=== PATIENT | male | born 1955 | race Two or more races ===

== ENCOUNTER 2017-01-15 17:54 | Inpatient (IN) | payer MEDICAID ==
[~2017-01-15] VITALS: Ht 157.5 cm; Wt 56.7 kg
[~2017-01-15 17:54] MED LIST: LIS10T PO; PANT40TA2 PO
[2017-01-15 18:55] LABS: Basophils # (auto) 0 uL; CONDITION Y; DEFINITIVE SEE PRINTOUT; Eosinophils # (auto) 0 uL; Mean Corpuscular Hemoglobin 16.6 pg (28.0-32.0); Neutrophils # (auto) 5.6 uL
[2017-01-15 19:00] LABS: Basophils % (auto) 0.3 % (0.0-2.0); Eosinophils % (auto) 0.2 % (0.0-7.0); Hematocrit 21.5 % (41.0-53.0); Lymphocytes # (auto) 0.9 uL; Lymphocytes % (auto) 12.9 % (10.0-50.0); Mean Corpuscular Hgb Conc. 29.6 g/dL (32.0-36.0); Mean Platelet Volume 8.6 fL (7.4-10.4); Monocytes # (auto) 0.7 uL; Neutrophils % (auto) 77.6 % (37.0-80.0); Platelet Count (auto) 435 10^3/uL (140-450); White Blood Cell 7.3 10^3/uL (4.4-10.8)
[2017-01-15 19:06] LABS: Red Cell Distribution Width 20.1 % (11.6-16.0)
[2017-01-15 19:09] LABS: Hemoglobin 6.4 g/dL (13.5-17.5)
[2017-01-15 19:11] LABS: Albumin 3.7 g/dL (3.4-5.0); Anion Gap 8 (5-15); Aspartate Aminotransferase 17 U/L (15-37); Blood Urea Nitrogen 23 mg/dL (7-18); Calcium 8.1 mg/dL (8.5-10.1); Carbon Dioxide 25 mmol/L (21-32); Chloride 107 mmol/L (98-107); GFR African American 108 mL/min; GFR Non-African American 89 mL/min; Glucose 77 mg/dL (74-106); Potassium 3.4 mmol/L (3.5-5.1); Sodium 140 mmol/L (136-145)
[2017-01-15 19:13] LABS: Prothrombin Time 10.9 sec (9.37-12.3)
[2017-01-15 19:16] LABS: Alkaline Phosphatase 64 U/L (45-117); Bilirubin, Total 0.9 mg/dL (0.2-1.0); Total Protein 7.3 g/dL (6.4-8.2)
[2017-01-15 19:33] LABS: Anisocytosis Moderate; Hypochromia Moderate; Platelet Estimate Adequate
[2017-01-15 19:34] LABS: Microcytosis Moderate; Ovalocytes MODERATE; Tear Drop Cells FEW
[2017-01-15 23:37] VITALS: BP 162/81
[2017-01-15 23:52] VITALS: BP 155/80
[2017-01-16] VITALS (15 sets, daily range): BP systolic 141–167; BP diastolic 73–86
[2017-01-16] MEDS ORDERED: MORPHINE SULF INJ 2 MG/ML SYRINGE 1ML IV PRN (06:45)
[2017-01-16] MEDS ORDERED: HYDROcodone-ACET 5/325MG TAB PO PRN (06:45)
[2017-01-16] MEDS ORDERED: ONDANSETRON HCL 4 MG/2 ML VIAL IV PRN (06:45)
[2017-01-16] MEDS ORDERED: NITROGLYCERIN 0.4 MG SL TAB SL PRN (06:45)
[2017-01-16] MEDS ORDERED: ACETAMINOPHEN 325 MG TAB PO PRN (06:45)
[2017-01-16] MEDS: SODIUM CHLORIDE 0.9% 1,000 ML IV SCH ×2 (07:15→21:49)
[2017-01-16] MEDS: PANTOPRAZOLE SODIUM 40 MG/10 ML VIAL IV SCH ×3 (07:20→21:49)
[2017-01-16 07:39] LABS: Hematocrit 32.4 % (41.0-53.0); Hemoglobin 10.1 g/dL (13.5-17.5)
[2017-01-16] MEDS ORDERED: GOLYTELY 4L KIT PO ONE (11:15)
[2017-01-16] MEDS: LISINOPRIL 10 MG TAB PO SCH (12:06)
[2017-01-16] MEDS ORDERED: BENA20TA14 PO (12:12)
[2017-01-17 00:27] VITALS: BP 140/67
[2017-01-17 05:00] VITALS: BP 138/65
[2017-01-17 06:20] LABS: Basophils # (auto) 0 uL; Basophils % (auto) 0.5 % (0.0-2.0); CONDITION Y; DEFINITIVE SEE PRINTOUT; Eosinophils # (auto) 0.1 uL; Eosinophils % (auto) 1.8 % (0.0-7.0); Hematocrit 31.5 % (41.0-53.0); Hemoglobin 9.8 g/dL (13.5-17.5); Lymphocytes # (auto) 0.9 uL; Mean Corpuscular Hemoglobin 20.2 pg (28.0-32.0); Mean Corpuscular Hgb Conc. 31.1 g/dL (32.0-36.0); Mean Corpuscular Volume 65.1 fL (80.0-100.0); Mean Platelet Volume 9.5 fL (7.4-10.4); Monocytes # (auto) 0.6 uL; Monocytes % (auto) 9.5 % (0.0-12.0); Neutrophils # (auto) 4.5 uL; Neutrophils % (auto) 74.2 % (37.0-80.0); Platelet Count (auto) 442 10^3/uL (140-450); SUSPECT SEE PRINTOUT; White Blood Cell 6.1 10^3/uL (4.4-10.8)
[2017-01-17 06:31] LABS: Red Cell Distribution Width 30.7 % (11.6-16.0)
[2017-01-17 06:42] LABS: Prothrombin Time 10.9 sec (9.37-12.3)
[2017-01-17 06:48] LABS: Anisocytosis Marked; Hypersegmented Neutrophils Present; Hypochromia Moderate; Microcytosis Marked; Ovalocytes MANY; Platelet Estimate Adequate
[2017-01-17 06:49] LABS: Polychromasia Slight
[2017-01-17 07:00] LABS: Albumin 3.2 g/dL (3.4-5.0); BUN/Creatinine Ratio 14.3; Calcium 7.9 mg/dL (8.5-10.1); Magnesium 2.3 mg/dL (1.6-2.6); Potassium 3.7 mmol/L (3.5-5.1)
[2017-01-17 07:02] LABS: Bilirubin, Total 1.9 mg/dL (0.2-1.0); Total Protein 6.4 g/dL (6.4-8.2)
[2017-01-17] MEDS ORDERED: SODIUM CHLORIDE LOCK 10 ML ONE (07:59)
[2017-01-17] MEDS ORDERED: LIDOCAINE VISCOUS 2% 15ML UD ONE (08:00)
[2017-01-17] MEDS ORDERED: diphenhdrAMINE HCL 50 MG/1 ML VL ONE (08:00)
[2017-01-17 09:00] VITALS: BP 137/63
[2017-01-17] MEDS: PANTOPRAZOLE SODIUM 40 MG/10 ML VIAL IV SCH ×2 (09:45→21:41)
[2017-01-17] MEDS: LISINOPRIL 10 MG TAB PO SCH (09:46)
[2017-01-17] MEDS: SODIUM CHLORIDE 0.9% 1,000 ML IV SCH ×2 (11:17→21:41)
[2017-01-17] MEDS: MIDAZOLAM HCL 5 MG/ML-1ML VIAL ONE ×3 (11:37→11:51)
[2017-01-17] MEDS: fentaNYL CITRATE 100 MCG/2 ML VL ONE ×3 (11:37→11:51)
[2017-01-17 17:23] VITALS: BP 173/71
[2017-01-17 17:30] VITALS: BP 147/75
[2017-01-17 21:27] VITALS: BP 110/74
[2017-01-18 04:52] VITALS: BP 105/66
[2017-01-18 06:41] LABS: Basophils # (auto) 0 uL; Basophils % (auto) 0.2 % (0.0-2.0); CONDITION Y; DEFINITIVE SEE PRINTOUT; Eosinophils # (auto) 0 uL; Eosinophils % (auto) 0.3 % (0.0-7.0); Hematocrit 31.2 % (41.0-53.0); Hemoglobin 9.9 g/dL (13.5-17.5); Lymphocytes # (auto) 0.6 uL; Mean Corpuscular Hemoglobin 20.4 pg (28.0-32.0); Mean Corpuscular Hgb Conc. 31.7 g/dL (32.0-36.0); Mean Corpuscular Volume 64.2 fL (80.0-100.0); Mean Platelet Volume 8.4 fL (7.4-10.4); Monocytes # (auto) 0.5 uL; Monocytes % (auto) 7.5 % (0.0-12.0); Neutrophils # (auto) 5.5 uL; Platelet Count (auto) 369 10^3/uL (140-450); SUSPECT SEE PRINTOUT; White Blood Cell 6.6 10^3/uL (4.4-10.8)
[2017-01-18 06:44] LABS: INR 1.04 (0.9-1.15); Prothrombin Time 11.3 sec (9.37-12.3)
[2017-01-18 06:53] LABS: Albumin 3.2 g/dL (3.4-5.0); BUN/Creatinine Ratio 11.8; Magnesium 2.3 mg/dL (1.6-2.6)
[2017-01-18 07:09] LABS: Bilirubin, Total 1.9 mg/dL (0.2-1.0); Total Protein 6.2 g/dL (6.4-8.2)
[2017-01-18 08:00] VITALS: BP 146/75
[2017-01-18] MEDS: PANTOPRAZOLE SODIUM 40 MG/10 ML VIAL IV SCH ×2 (09:06→21:31)
[2017-01-18] MEDS: LISINOPRIL 10 MG TAB PO SCH (09:06)
[2017-01-18 09:29] LABS: Microcytosis Marked; Platelet Estimate Adequate
[2017-01-18 09:30] LABS: Anisocytosis Marked; Hypochromia Marked; Ovalocytes MODERATE
[2017-01-18 09:31] LABS: Burr Cells FEW
[2017-01-18 09:32] LABS: Schistocytes FEW; Tear Drop Cells FEW
[2017-01-18 13:00] VITALS: BP 146/74
[2017-01-18 16:43] VITALS: BP 141/74
[2017-01-18 21:10] VITALS: BP 146/77
[2017-01-18] MEDS: Boost Breeze 8 Ounces PO SCH (21:31)
[2017-01-19] MEDS: SODIUM CHLORIDE 0.9% 1,000 ML IV SCH ×2 (01:55→23:02)
[2017-01-19 05:00] VITALS: BP 145/80
[2017-01-19] MEDS: Boost Breeze 8 Ounces PO SCH ×3 (06:00→22:21)
[2017-01-19 06:23] LABS: Hematocrit 30.1 % (41.0-53.0); Hemoglobin 9.3 g/dL (13.5-17.5)
[2017-01-19 09:00] VITALS: BP 150/74
[2017-01-19] MEDS: PANTOPRAZOLE SODIUM 40 MG/10 ML VIAL IV SCH ×2 (09:55→22:21)
[2017-01-19] MEDS: LISINOPRIL 10 MG TAB PO SCH (09:55)
[2017-01-19 12:28] VITALS: BP 130/73
[2017-01-19 17:08] VITALS: BP 139/70
[2017-01-19 22:00] VITALS: BP 153/75
[2017-01-20 05:19] VITALS: BP 144/83
[2017-01-20 05:54] LABS: Hematocrit 30.5 % (41.0-53.0); Hemoglobin 9.5 g/dL (13.5-17.5)
[2017-01-20] MEDS: Boost Breeze 8 Ounces PO SCH ×2 (06:00→14:00)
[2017-01-20 08:42] VITALS: BP 148/75
[2017-01-20] MEDS: PANTOPRAZOLE SODIUM 40 MG/10 ML VIAL IV SCH (09:59)
[2017-01-20] MEDS: LISINOPRIL 10 MG TAB PO SCH (09:59)
[2017-01-20 12:25] VITALS: BP 151/83
[2017-01-20] MEDS ORDERED: PANT40TA2 PO (13:06)
[2017-01-20 17:06] VITALS: BP 127/78
== END 2017-01-20 16:05 | disposition home or self-care (01) | DRG 240 ==
LOC: ER 17:55 → OVERFLOW 17:56 → EAST 01-16 09:25 → CENTRAL 01-16 17:32 → TELE-CENTR 01-16 17:52
PROVIDERS: ADMIT Nurse Practitioner; ATTEND Internal Medicine
PROC: 30233N1 Transfusion of Nonautologous Red Blood Cells into Peripheral Vein, Percutaneous Approach (ICD-10-PCS; 2017-01-15)
PROC: 0W3P8ZZ Control Bleeding in Gastrointestinal Tract, Via Natural or Artificial Opening Endoscopic (ICD-10-PCS; 2017-01-17)
PROC: 0DBE8ZX Excision of Large Intestine, Via Natural or Artificial Opening Endoscopic, Diagnostic (ICD-10-PCS; principal; 2017-01-17 11:35)
PROC: 0DB68ZX Excision of Stomach, Via Natural or Artificial Opening Endoscopic, Diagnostic (ICD-10-PCS; 2017-01-17 11:35)
DX: C18.9 Malignant neoplasm of colon, unspecified (principal); I11.9 Hypertensive heart disease without heart failure; K92.2 Gastrointestinal hemorrhage, unspecified; D50.0 Iron deficiency anemia secondary to blood loss (chronic); J98.11 Atelectasis; D64.9 Anemia, unspecified; K44.9 Diaphragmatic hernia without obstruction or gangrene; K29.60 Other gastritis without bleeding; K40.20 Bilateral inguinal hernia, without obstruction or gangrene, not specified as recurrent; Q27.33 Arteriovenous malformation of digestive system vessel; Z85.038 Personal history of other malignant neoplasm of large intestine; Z90.49 Acquired absence of other specified parts of digestive tract; Z80.9 Family history of malignant neoplasm, unspecified
CPT/HCPCS: 36415; 36430; 43239; 43255; 45380; 74176; 80053; 82270; 83735; 84484; 85014; 85018; 85025; 85610; 86850; 86900; 86901; 86920; 88342; 93005; 94761; C9113; J2250

== ENCOUNTER 2018-02-05 13:24 | Inpatient (IN) | payer MEDICAID ==
[~2018-02-05] VITALS: Ht 152.4 cm; Wt 59.3 kg
[2018-02-05] VITALS (10 sets, daily range): BP systolic 127–148; BP diastolic 64–75
[~2018-02-05 13:24] MED LIST changes: +BENA20TA14 PO
[2018-02-05] MEDS ORDERED: SODIUM CHLORIDE 0.9% 500 ML IV ONE (14:00)
[2018-02-05 14:21] LABS: Basophils # (auto) 0 uL; Eosinophils # (auto) 0.1 uL; Lymphocytes # (auto) 0.2 uL
[2018-02-05 14:23] LABS: Basophils % (auto) 0.1 % (0.0-2.0); Eosinophils % (auto) 1.2 % (0.0-7.0); Hematocrit 19.1 % (41.0-53.0); Mean Corpuscular Hemoglobin 22.1 pg (28.0-32.0); Mean Corpuscular Hgb Conc. 31.3 g/dL (32.0-36.0); Mean Corpuscular Volume 70.4 fL (80.0-100.0); Monocytes # (auto) 0.7 uL; Monocytes % (auto) 8.8 % (0.0-12.0); Neutrophils # (auto) 7.1 uL; Neutrophils % (auto) 86.9 % (37.0-80.0); Nucleated Red Blood Cells % 0.1 %; Platelet Count (auto) 519 10^3/uL (140-450); Red Blood Cells 2.71 10^6/uL (4.5-5.90); White Blood Cell 8.2 10^3/uL (4.4-10.8)
[2018-02-05 14:35] LABS: Red Cell Distribution Width 23.4 % (11.8-14.3)
[2018-02-05 14:41] LABS: INR 1.09 (0.9-1.15); Partial Thromboplastin Time 32.2 sec (23.78-33.04); Prothrombin Time 11.6 sec (9.27-12.13)
[2018-02-05 14:45] LABS: Alanine Aminotransferase 18 U/L (16-61); Albumin 2.1 g/dL (3.4-5.0); Alkaline Phosphatase 54 U/L (45-117); Anion Gap 6 (5-15); Aspartate Aminotransferase 16 U/L (15-37); BUN/Creatinine Ratio 18.3; Bilirubin, Total 0.3 mg/dL (0.2-1.0); Blood Urea Nitrogen 20 mg/dL (7-18); Calcium 7.4 mg/dL (8.5-10.1); Carbon Dioxide 26 mmol/L (21-32); Chloride 102 mmol/L (98-107); GFR African American 88 mL/min; GFR Non-African American 73 mL/min; Glucose 102 mg/dL (74-106); Potassium 3.1 mmol/L (3.5-5.1); Sodium 134 mmol/L (136-145); Total Protein 5.9 g/dL (6.4-8.2)
[2018-02-05 15:50] LABS: Urine Bacteria NONE SEEN /hpf (None Seen); Urine Blood Negative /uL (Negative); Urine Specific Gravity 1.002 (1.001-1.035); Urine WBC 10 /hpf (0 - 3)
[2018-02-05] MEDS ORDERED: TEMAZEPAM 15 MG CAP PO PRN (18:00)
[2018-02-05] MEDS ORDERED: MORPHINE SULFATE 4 MG/ML SYR/VIAL IV PRN ×2 (18:00)
[2018-02-05] MEDS ORDERED: PROMETHAZINE HCL 25 MG/ML 1ML IV PRN (18:00)
[2018-02-05] MEDS ORDERED: ACETAMINOPHEN 500 MG TAB PO PRN (18:00)
[2018-02-05] MEDS ORDERED: cefTRIAXone 1GM/10ml IVPUSH 10 ML IV ONE (18:00)
[2018-02-05] MEDS ORDERED: NITROGLYCERIN 0.4 MG SL TAB SL PRN (18:00)
[2018-02-05] MEDS ORDERED: HYDROcodone-ACET 5/325MG TAB PO PRN (18:00)
[2018-02-05] MEDS ORDERED: LORazepam 0.5 MG TAB PO PRN (18:00)
[2018-02-05] MEDS: SODIUM CHLORIDE 0.9% 1,000 ML IV SCH (19:35)
[2018-02-05 22:22] LABS: Hematocrit 20.3 % (41.0-53.0)
[2018-02-05] MEDS: metroNIDAZOLE 500MG/100ML 100 ML IV SCH (22:26)
[2018-02-05] MEDS: PANTOPRAZOLE 40 MG TAB PO SCH (22:27)
[2018-02-05] MEDS: BENAZEPRIL HCL 10 MG TAB PO SCH (22:27)
[2018-02-05 22:29] LABS: Hemoglobin 6.5 g/dL (13.5-17.5)
[2018-02-06] VITALS (9 sets, daily range): BP systolic 117–143; BP diastolic 62–73
[2018-02-06] MEDS: SODIUM CHLORIDE 0.9% 1,000 ML IV SCH ×2 (06:23→10:21)
[2018-02-06] MEDS: metroNIDAZOLE 500MG/100ML 100 ML IV SCH (06:24)
[2018-02-06 07:05] LABS: Hematocrit 21.3 % (41.0-53.0)
[2018-02-06 10:12] LABS: Hemoglobin 7.1 g/dL (13.5-17.5)
[2018-02-06 10:14] LABS: Hematocrit 23.1 % (41.0-53.0)
[2018-02-06] MEDS: cefTRIAXone 1GM/10ml IVPUSH 10 ML IV SCH (10:20)
[2018-02-06] MEDS: PANTOPRAZOLE 40 MG TAB PO SCH ×2 (10:20→21:27)
[2018-02-06] MEDS: metroNIDAZOLE 500 MG TAB PO SCH ×2 (15:00→21:26)
[2018-02-06] MEDS: FLORASTOR (S. BOULARDII) 250 MG CAP PO SCH (16:50)
[2018-02-06] MEDS: BENAZEPRIL HCL 10 MG TAB PO SCH (21:27)
[2018-02-07 05:22] VITALS: BP 125/72
[2018-02-07 06:01] LABS: BUN/Creatinine Ratio 17.7; Calcium 7.2 mg/dL (8.5-10.1); Potassium 3.4 mmol/L (3.5-5.1)
[2018-02-07 06:13] LABS: Basophils # (auto) 0 uL; Basophils % (auto) 0.2 % (0.0-2.0); Eosinophils # (auto) 0.1 uL; Hematocrit 30.7 % (41.0-53.0); Hemoglobin 9.2 g/dL (13.5-17.5); Lymphocytes # (auto) 0.4 uL; Mean Corpuscular Hemoglobin 24.2 pg (28.0-32.0); Mean Corpuscular Volume 80.7 fL (80.0-100.0); Monocytes # (auto) 0.7 uL; Monocytes % (auto) 7.1 % (0.0-12.0); Neutrophils # (auto) 8.2 uL; Neutrophils % (auto) 87.7 % (37.0-80.0); Nucleated Red Blood Cells % 0.1 %; Platelet Count (auto) 503 10^3/uL (140-450); Red Blood Cells 3.81 10^6/uL (4.5-5.90); White Blood Cell 9.3 10^3/uL (4.4-10.8)
[2018-02-07 06:14] LABS: Red Cell Distribution Width 26.9 % (11.8-14.3)
[2018-02-07] MEDS: metroNIDAZOLE 500 MG TAB PO SCH ×2 (06:59→14:14)
[2018-02-07 09:00] VITALS: BP 134/71
[2018-02-07] MEDS: FLORASTOR (S. BOULARDII) 250 MG CAP PO SCH (09:56)
[2018-02-07] MEDS: PANTOPRAZOLE 40 MG TAB PO SCH (09:56)
[2018-02-07] MEDS: cefTRIAXone 1GM/10ml IVPUSH 10 ML IV SCH (09:56)
[2018-02-07 13:00] VITALS: BP 142/78
[2018-02-07] MEDS ORDERED: POTASSIUM CHL 20 Meq TABLET PO ONE (14:15)
[2018-02-07 15:24] VITALS: BP 142/78
== END 2018-02-07 16:40 | disposition home or self-care (01) | DRG 240 ==
LOC: ER 13:24 → TELE 13:25 → TELE-WESTW 20:10 → WEST WING 02-06 16:05
PROVIDERS: ADMIT Internal Medicine; ATTEND Internal Medicine
PROC: 30233N1 Transfusion of Nonautologous Red Blood Cells into Peripheral Vein, Percutaneous Approach (ICD-10-PCS; principal; 2018-02-05)
DX: C18.9 Malignant neoplasm of colon, unspecified (principal); E44.0 Moderate protein-calorie malnutrition; N39.0 Urinary tract infection, site not specified; E87.1 Hypo-osmolality and hyponatremia; K92.2 Gastrointestinal hemorrhage, unspecified; B96.1 Klebsiella pneumoniae [K. pneumoniae] as the cause of diseases classified elsewhere; I10 Essential (primary) hypertension; E87.6 Hypokalemia; D64.9 Anemia, unspecified; R19.7 Diarrhea, unspecified; R60.0 Localized edema; Z87.19 Personal history of other diseases of the digestive system; Z90.49 Acquired absence of other specified parts of digestive tract; Z79.899 Other long term (current) drug therapy; Z68.25 Body mass index [BMI] 25.0-25.9, adult; Z85.038 Personal history of other malignant neoplasm of large intestine; Z92.21 Personal history of antineoplastic chemotherapy
CPT/HCPCS: 36415; 36430; 71045; 80048; 80053; 81001; 84484; 85014; 85018; 85025; 85045; 85610; 85730; 86850; 86900; 86901; 86920; 87086; 87088; 87186; 87493; 93005; 93971; 96361; 96374; J0696; J3490

== ENCOUNTER 2018-03-06 19:26 | Inpatient (IN) | payer MEDICAID, OTHER ==
[~2018-03-06] VITALS: Ht 152.4 cm; Wt 51.0 kg
[2018-03-06 22:58] LABS: Basophils # (auto) 0.1 uL; Eosinophils # (auto) 0.1 uL; Hemoglobin 8.7 g/dL (13.5-17.5); Lymphocytes # (auto) 0.4 uL; Monocytes # (auto) 0.8 uL; Neutrophils # (auto) 10.4 uL
[2018-03-06 22:59] LABS: Basophils % (auto) 1.1 % (0.0-2.0); Eosinophils % (auto) 0.6 % (0.0-7.0); Hematocrit 27.6 % (41.0-53.0); Lymphocytes % (auto) 3.4 % (10.0-50.0); Mean Corpuscular Hemoglobin 23.7 pg (28.0-32.0); Mean Corpuscular Hgb Conc. 31.4 g/dL (32.0-36.0); Mean Corpuscular Volume 75.3 fL (80.0-100.0); Monocytes % (auto) 6.7 % (0.0-12.0); Neutrophils % (auto) 88.2 % (37.0-80.0); Red Blood Cells 3.67 10^6/uL (4.5-5.90); White Blood Cell 11.8 10^3/uL (4.4-10.8)
[2018-03-06 23:07] LABS: Urine Bacteria FEW /hpf (None Seen); Urine Blood Negative /uL (Negative); Urine Specific Gravity 1.011 (1.001-1.035); Urine WBC 23 /hpf (0 - 3)
[2018-03-06 23:10] LABS: Platelet Count (auto) 761 10^3/uL (140-450)
[2018-03-06 23:14] LABS: Albumin 2.7 g/dL (3.4-5.0); BUN/Creatinine Ratio 17.9; Calcium 8.8 mg/dL (8.5-10.1); Potassium 3.9 mmol/L (3.5-5.1)
[2018-03-06 23:16] LABS: Bilirubin, Total 0.4 mg/dL (0.2-1.0); Total Protein 7.9 g/dL (6.4-8.2)
[2018-03-07] MEDS ORDERED: CHOL20007 PO (01:25)
[2018-03-07] MEDS ORDERED: CALC667C PO (01:25)
[2018-03-07] MEDS ORDERED: cefTRIAXone 1GM/10ml IVPUSH 10 ML IV ONE (03:15)
[2018-03-07] MEDS ORDERED: SUCR1TAB PO (06:08)
[2018-03-07] MEDS ORDERED: BISA-8 PO (06:08)
[2018-03-07] MEDS ORDERED: FER325T PO (06:08)
[2018-03-07] MEDS ORDERED: TEMAZEPAM 15 MG CAP PO PRN (08:30)
[2018-03-07] MEDS ORDERED: ONDANSETRON HCL 4 MG/2 ML VIAL IV PRN (08:30)
[2018-03-07] MEDS ORDERED: ACETAMINOPHEN 500 MG TAB PO PRN (08:30)
[2018-03-07 10:06] LABS: Eosinophils # (auto) 0.1 uL
[2018-03-07 10:29] LABS: Basophils # (auto) 0 uL; Basophils % (auto) 0.5 % (0.0-2.0); Eosinophils % (auto) 0.8 % (0.0-7.0); Hemoglobin 8.9 g/dL (13.5-17.5); Lymphocytes # (auto) 0.4 uL; Lymphocytes % (auto) 4.3 % (10.0-50.0); Mean Corpuscular Hemoglobin 23.8 pg (28.0-32.0); Mean Corpuscular Hgb Conc. 31.7 g/dL (32.0-36.0); Mean Corpuscular Volume 74.9 fL (80.0-100.0); Monocytes # (auto) 0.8 uL; Monocytes % (auto) 7.9 % (0.0-12.0); Neutrophils # (auto) 8.7 uL; Neutrophils % (auto) 86.5 % (37.0-80.0); Platelet Count (auto) 741 10^3/uL (140-450); Red Blood Cells 3.74 10^6/uL (4.5-5.90)
[2018-03-07 10:33] LABS: Red Cell Distribution Width 22.9 % (11.8-14.3)
[2018-03-07 10:43] LABS: BUN/Creatinine Ratio 17.1; Calcium 8.6 mg/dL (8.5-10.1); Potassium 3.9 mmol/L (3.5-5.1)
[2018-03-07] MEDS: SUCRALFATE 1 GM TAB PO SCH ×3 (12:04→21:23)
[2018-03-07 13:00] VITALS: BP 144/81
[2018-03-07 15:48] VITALS: BP 134/72
[2018-03-07] MEDS: MORPHINE SULF INJ 2 MG/ML SYRINGE 1ML IV PRN ×2 (16:05→21:24)
[2018-03-07 16:55] VITALS: BP 147/83
[2018-03-07] MEDS: FERROUS SULFATE 325 MG TAB PO SCH (17:26)
[2018-03-07 21:30] VITALS: BP 146/82
[2018-03-08 05:00] VITALS: BP 150/81
[2018-03-08] MEDS: SUCRALFATE 1 GM TAB PO SCH ×4 (06:47→21:32)
[2018-03-08] MEDS: MORPHINE SULF INJ 2 MG/ML SYRINGE 1ML IV PRN ×2 (06:53→17:44)
[2018-03-08] MEDS: FERROUS SULFATE 325 MG TAB PO SCH ×2 (08:41→17:43)
[2018-03-08 09:00] VITALS: BP 129/77
[2018-03-08] MEDS ORDERED: SOD CHL 0.45% 1,000 ML IV ONE (11:00)
[2018-03-08] MEDS: cefTRIAXone 1GM/10ml IVPUSH 10 ML IV SCH (11:46)
[2018-03-08] MEDS: SODIUM FERR GLUC 62.5MG/5ML 125 MG in SODIUM CHL 0.9% 100 ML IV SCH (12:25)
[2018-03-08 13:00] VITALS: BP 154/75
[2018-03-08] MEDS ORDERED: GASTROGRAFIN 30 ML SOL ONE (13:01)
[2018-03-08 17:00] VITALS: BP 140/78
[2018-03-08 20:00] VITALS: BP 138/78
[2018-03-08 22:00] VITALS: BP 138/78
[2018-03-09 04:32] VITALS: BP 134/74
[2018-03-09 06:23] LABS: Basophils # (auto) 0 uL; Basophils % (auto) 0.3 % (0.0-2.0); Eosinophils # (auto) 0.1 uL; Hemoglobin 8.5 g/dL (13.5-17.5)
[2018-03-09] MEDS: SUCRALFATE 1 GM TAB PO SCH ×4 (06:27→22:22)
[2018-03-09 06:30] LABS: Eosinophils % (auto) 0.8 % (0.0-7.0); Hematocrit 25.8 % (41.0-53.0); Lymphocytes # (auto) 0.3 uL; Lymphocytes % (auto) 2.8 % (10.0-50.0); Mean Corpuscular Hemoglobin 24.6 pg (28.0-32.0); Mean Corpuscular Hgb Conc. 32.8 g/dL (32.0-36.0); Mean Corpuscular Volume 74.9 fL (80.0-100.0); Monocytes # (auto) 0.9 uL; Monocytes % (auto) 7.6 % (0.0-12.0); Neutrophils # (auto) 10.9 uL; Neutrophils % (auto) 88.5 % (37.0-80.0); Platelet Count (auto) 686 10^3/uL (140-450); Red Blood Cells 3.45 10^6/uL (4.5-5.90); White Blood Cell 12.3 10^3/uL (4.4-10.8)
[2018-03-09 06:55] LABS: % Iron Saturation 11.1 % (20-55)
[2018-03-09 06:58] LABS: Red Cell Distribution Width 22.2 % (11.8-14.3)
[2018-03-09] MEDS: FERROUS SULFATE 325 MG TAB PO SCH ×2 (08:28→17:29)
[2018-03-09] MEDS: cefTRIAXone 1GM/10ml IVPUSH 10 ML IV SCH (08:43)
[2018-03-09 08:52] VITALS: BP_SYST 110; BP_SYST 132; BP_DIAS 75
[2018-03-09] MEDS: HYDROcodone-ACET 5/325MG TAB PO PRN ×2 (10:10→20:09)
[2018-03-09] MEDS: SODIUM FERR GLUC 62.5MG/5ML 125 MG in SODIUM CHL 0.9% 100 ML IV SCH (11:53)
[2018-03-09 13:00] VITALS: BP 130/73
[2018-03-09 16:58] VITALS: BP 149/89
[2018-03-09 22:00] VITALS: BP 135/74
[2018-03-10 04:57] VITALS: BP 134/79
[2018-03-10] MEDS: SUCRALFATE 1 GM TAB PO SCH ×4 (06:11→22:48)
[2018-03-10 06:13] LABS: Basophils # (auto) 0 uL; Lymphocytes # (auto) 0.6 uL; Monocytes % (auto) 8.6 % (0.0-12.0)
[2018-03-10 06:16] LABS: Basophils % (auto) 0.4 % (0.0-2.0); Eosinophils # (auto) 0.1 uL; Eosinophils % (auto) 1.2 % (0.0-7.0); Hematocrit 30.5 % (41.0-53.0); Hemoglobin 9.6 g/dL (13.5-17.5); Lymphocytes % (auto) 5.3 % (10.0-50.0); Mean Corpuscular Hemoglobin 23.9 pg (28.0-32.0); Mean Corpuscular Hgb Conc. 31.4 g/dL (32.0-36.0); Neutrophils # (auto) 10.1 uL; Neutrophils % (auto) 84.5 % (37.0-80.0); Red Blood Cells 4.01 10^6/uL (4.5-5.90); White Blood Cell 11.9 10^3/uL (4.4-10.8)
[2018-03-10 06:21] LABS: BUN/Creatinine Ratio 18.5; Calcium 8.6 mg/dL (8.5-10.1)
[2018-03-10 06:29] LABS: Red Cell Distribution Width 21.8 % (11.8-14.3)
[2018-03-10 06:31] LABS: Platelet Count (auto) 769 10^3/uL (140-450)
[2018-03-10 09:00] VITALS: BP_SYST 107; BP_SYST 134; BP_DIAS 62; BP_DIAS 74
[2018-03-10] MEDS: cefTRIAXone 1GM/10ml IVPUSH 10 ML IV SCH (09:09)
[2018-03-10] MEDS: FERROUS SULFATE 325 MG TAB PO SCH ×2 (09:09→17:05)
[2018-03-10] MEDS ORDERED: LIDOCAINE 2% (LOCAL ANESTH.) PF 5ml SDV ONE ×2 (10:28→12:31)
[2018-03-10] MEDS ORDERED: IODIXANOL 320MG/ML 100ML BTL IV ONE (10:28)
[2018-03-10 11:03] LABS: INR 1.02 (0.9-1.15); Partial Thromboplastin Time 38.5 sec (23.78-33.04); Prothrombin Time 10.9 sec (9.27-12.13)
[2018-03-10] MEDS ORDERED: MIDAZOLAM HCL 1MG/1ML-2 ML VIAL ONE (11:57)
[2018-03-10] MEDS ORDERED: fentaNYL CITRATE 100 MCG/2 ML VL ONE (11:57)
[2018-03-10 13:00] VITALS: BP 123/77
[2018-03-10] MEDS: SODIUM FERR GLUC 62.5MG/5ML 125 MG in SODIUM CHL 0.9% 100 ML IV SCH (14:39)
[2018-03-10] MEDS: HYDROcodone-ACET 5/325MG TAB PO PRN ×2 (15:32→22:48)
[2018-03-10 17:00] VITALS: BP 146/79
[2018-03-10 22:00] VITALS: BP 140/73
[2018-03-11 05:00] VITALS: BP 142/82
[2018-03-11 06:00] LABS: Basophils # (auto) 0 uL; Eosinophils # (auto) 0.2 uL; Eosinophils % (auto) 1.9 % (0.0-7.0); Lymphocytes # (auto) 0.4 uL; Neutrophils # (auto) 8.2 uL; White Blood Cell 9.7 10^3/uL (4.4-10.8)
[2018-03-11] MEDS: SUCRALFATE 1 GM TAB PO SCH ×4 (06:09→20:12)
[2018-03-11 06:11] LABS: Basophils % (auto) 0.3 % (0.0-2.0); Hematocrit 27.9 % (41.0-53.0); Hemoglobin 8.8 g/dL (13.5-17.5); Lymphocytes % (auto) 4.6 % (10.0-50.0); Mean Corpuscular Hgb Conc. 31.7 g/dL (32.0-36.0); Mean Corpuscular Volume 75.6 fL (80.0-100.0); Monocytes # (auto) 0.8 uL; Monocytes % (auto) 8.1 % (0.0-12.0); Neutrophils % (auto) 85.1 % (37.0-80.0); Platelet Count (auto) 688 10^3/uL (140-450); Red Blood Cells 3.69 10^6/uL (4.5-5.90)
[2018-03-11 06:25] LABS: BUN/Creatinine Ratio 22.2; Calcium 8.3 mg/dL (8.5-10.1); Potassium 4.2 mmol/L (3.5-5.1)
[2018-03-11 06:27] LABS: Red Cell Distribution Width 22.2 % (11.8-14.3)
[2018-03-11 09:00] VITALS: BP 131/75
[2018-03-11] MEDS: cefTRIAXone 1GM/10ml IVPUSH 10 ML IV SCH (09:05)
[2018-03-11] MEDS: FERROUS SULFATE 325 MG TAB PO SCH ×2 (09:05→18:06)
[2018-03-11] MEDS: SODIUM FERR GLUC 62.5MG/5ML 125 MG in SODIUM CHL 0.9% 100 ML IV SCH (11:57)
[2018-03-11] MEDS: HYDROcodone-ACET 5/325MG TAB PO PRN (11:58)
[2018-03-11 13:00] VITALS: BP 148/72
[2018-03-11] MEDS ORDERED: HYDROcodone-ACET 5/325MG TAB PO PRN (13:00)
[2018-03-11] MEDS ORDERED: MORPHINE SULF INJ 2 MG/ML SYRINGE 1ML IV PRN (13:00)
[2018-03-11 17:00] VITALS: BP 135/74
[2018-03-11 21:59] VITALS: BP 142/78
[2018-03-12 05:33] VITALS: BP 134/74
[2018-03-12 05:59] LABS: Basophils # (auto) 0 uL; Basophils % (auto) 0.4 % (0.0-2.0); Eosinophils # (auto) 0.2 uL; Lymphocytes # (auto) 0.4 uL; Monocytes # (auto) 0.9 uL
[2018-03-12 06:01] LABS: Eosinophils % (auto) 1.7 % (0.0-7.0); Hematocrit 27.2 % (41.0-53.0); Hemoglobin 8.7 g/dL (13.5-17.5); Lymphocytes % (auto) 3.4 % (10.0-50.0); Mean Corpuscular Hemoglobin 24.4 pg (28.0-32.0); Mean Corpuscular Hgb Conc. 32.1 g/dL (32.0-36.0); Mean Corpuscular Volume 76.2 fL (80.0-100.0); Monocytes % (auto) 8.6 % (0.0-12.0); Neutrophils # (auto) 8.8 uL; Neutrophils % (auto) 85.9 % (37.0-80.0); Platelet Count (auto) 634 10^3/uL (140-450); Red Blood Cells 3.57 10^6/uL (4.5-5.90); White Blood Cell 10.3 10^3/uL (4.4-10.8)
[2018-03-12 06:13] LABS: Red Cell Distribution Width 21.8 % (11.8-14.3)
[2018-03-12] MEDS: SUCRALFATE 1 GM TAB PO SCH ×2 (06:16→10:54)
[2018-03-12 06:33] LABS: BUN/Creatinine Ratio 23.3; Calcium 8.3 mg/dL (8.5-10.1); Potassium 4.1 mmol/L (3.5-5.1)
[2018-03-12 08:00] VITALS: BP 125/74
[2018-03-12] MEDS: cefTRIAXone 1GM/10ml IVPUSH 10 ML IV SCH (08:23)
[2018-03-12] MEDS: FERROUS SULFATE 325 MG TAB PO SCH (08:23)
[2018-03-12 12:00] VITALS: BP 134/73
[2018-03-12] MEDS: SODIUM FERR GLUC 62.5MG/5ML 125 MG in SODIUM CHL 0.9% 100 ML IV SCH (12:10)
[2018-03-12 14:59] VITALS: BP 125/74
== END 2018-03-12 17:02 | disposition home or self-care (01) | DRG 720 ==
LOC: ER 19:26 → OVERFLOW 19:27 → WEST WING 03-07 09:41
PROVIDERS: ADMIT Nurse Practitioner Family; ATTEND Internal Medicine
PROC: 0T903ZZ Drainage of Right Kidney, Percutaneous Approach (ICD-10-PCS; principal; 2018-03-10)
PROC: BT1D1ZZ Fluoroscopy of Right Kidney, Ureter and Bladder using Low Osmolar Contrast (ICD-10-PCS; 2018-03-10)
DX: A41.9 Sepsis, unspecified organism (principal); N17.0 Acute kidney failure with tubular necrosis; E43 Unspecified severe protein-calorie malnutrition; I31.3 Pericardial effusion (noninflammatory); Z93.6 Other artificial openings of urinary tract status; D50.0 Iron deficiency anemia secondary to blood loss (chronic); N13.6 Pyonephrosis; K62.89 Other specified diseases of anus and rectum; Z85.048 Personal history of other malignant neoplasm of rectum, rectosigmoid junction, and anus; N40.0 Benign prostatic hyperplasia without lower urinary tract symptoms; B96.20 Unspecified Escherichia coli [E. coli] as the cause of diseases classified elsewhere; D47.3 Essential (hemorrhagic) thrombocythemia; Z80.9 Family history of malignant neoplasm, unspecified; Z92.21 Personal history of antineoplastic chemotherapy; Z92.3 Personal history of irradiation; Z68.22 Body mass index [BMI] 22.0-22.9, adult
CPT/HCPCS: 36415; 71250; 74176; 76775; 76942; 80048; 80053; 81001; 82378; 82728; 83540; 83550; 83605; 85025; 85045; 85610; 85730; 87040; 87081; 87086; 87088; 87186; 93005; 93306; 96361; 96365; 96375; 99152; A6257; C1729; J0696; J2001; J2250; Q9967

== ENCOUNTER 2018-06-02 06:47 | Emergency (ER) | payer MEDICAID ==
[~2018-06-02] VITALS: Ht 165.1 cm; Wt 49.9 kg
[~2018-06-02 06:47] MED LIST changes: -BENA20TA14 PO; +BISA-8 PO; +CALC667C PO; +CHOL20007 PO; +FER325T PO; -LIS10T PO; -PANT40TA2 PO; +SUCR1TAB PO
[2018-06-02 07:28] VITALS: BP 11/59
== END 2018-06-02 09:03 | disposition home or self-care (01) ==
LOC: ER 06:47
DX: Z48.01 Encounter for change or removal of surgical wound dressing (principal); Z93.6 Other artificial openings of urinary tract status; Z79.899 Other long term (current) drug therapy
CPT/HCPCS: 99282; A6257

== ENCOUNTER 2018-09-04 14:43 | Emergency (ER) | payer MEDICAID ==
[~2018-09-04] VITALS: Ht 152.4 cm; Wt 49.9 kg
[2018-09-04 14:54] VITALS: BP 160/58
== END 2018-09-04 18:24 | disposition home or self-care (01) ==
LOC: ER 14:47
DX: T83.022A Displacement of nephrostomy catheter, initial encounter (principal)
CPT/HCPCS: 50435